=== PATIENT | male | born 1995 | race Caucasian/White ===

== ENCOUNTER 2019-02-13 17:49 | Emergency (ER) | payer SELFPAY ==
[2019-02-13] MEDS ORDERED: Adacel (T-DAP) 0.5 ML SYRINGE ONE ×3 (18:19→19:33)
[2019-02-13] MEDS ORDERED: Morphine 4 MG/ML VIAL ONE (18:35)
--- NOTE | 2019-02-13 18:41 | RAD ---
Radiograph right forearm 2 views: HISTORY: 24-year-old male status post laceration to forearm FINDINGS: No fracture of the radius or ulna. IMPRESSION: Negative
[2019-02-13] MEDS ORDERED: Ketorolac Tromethamine 30 MG/ML VIAL ONE (18:56)
[2019-02-13] MEDS ORDERED: CEFAZOLIN 1 GM VIAL ONE (18:57)
== END 2019-02-13 20:28 | disposition home or self-care (01) ==
LOC: ERS 17:49
DX: S51.811A Laceration without foreign body of right forearm, initial encounter (principal); S56.129A Laceration of flexor muscle, fascia and tendon of unspecified finger at forearm level, initial encounter; F17.210 Nicotine dependence, cigarettes, uncomplicated; W17.89XA Other fall from one level to another, initial encounter
CPT/HCPCS: 90715; 96365; 96372; 96375; J0690; J1885; J2270